=== PATIENT | male | born 1950 | race Caucasian/White ===

== ENCOUNTER 2021-03-13 14:52 | Emergency (ER) | payer MEDICARE ==
[~2021-03-13] VITALS: Ht 167.6 cm; Wt 104.3 kg
[2021-03-13] MEDS ORDERED: DOXYCYCLINE HY100 MG PO (16:25)
== END 2021-03-13 16:37 | disposition home or self-care (01) ==
LOC: ER 15:05
DX: R06.00 Dyspnea, unspecified (principal); M79.89 Other specified soft tissue disorders; I10 Essential (primary) hypertension; E11.9 Type 2 diabetes mellitus without complications; I50.9 Heart failure, unspecified; E78.5 Hyperlipidemia, unspecified; M54.9 Dorsalgia, unspecified; G89.29 Other chronic pain; R94.31 Abnormal electrocardiogram [ECG] [EKG]
CPT/HCPCS: 71045; 93005; 99283

== ENCOUNTER 2024-02-09 07:10 | Emergency (ER) | payer MEDICARE ==
[~2024-02-09] VITALS: Ht 167.6 cm; Wt 104.3 kg
[~2024-02-09 07:10] MED LIST: DOXYCYCLINE HY100 MG PO
[2024-02-09 07:15] VITALS: PULSE 76; RESP 22; TEMP 99.6; O2SAT 98
[2024-02-09 08:15] LABS: EOSINOPHILS # (AUTO) 0.2 (0.0-0.4); EOSINOPHILS % 6.1 % (0.0-6.0); HEMOGLOBIN 13.4 g/dL (14.0-18.0); LYMPHOCYTES # (AUTO) 0.9 (1.0-3.2); LYMPHOCYTES % 29.3 % (18.0-39.1); MEAN CORPUSCULAR HEMOGLOBIN 26.7 pg (28-32); MEAN CORPUSCULAR HGB CONC 31.9 g/dL (31-35); MEAN CORPUSCULAR VOLUME 83.7 fL (81-99); MONOCYTES # (AUTO) 0.7 (0.2-0.8); MONOCYTES % 21.3 % (4.4-11.3); NEUTROPHILS # (AUTO) 1.3 (2.1-6.9); PLATELET COUNT 228 x10e3/uL (140-360); RED BLOOD COUNT 5.02 x10e6/uL (4.3-5.7); RED CELL DISTRIBUTION WIDTH 13.9 % (11.7-14.4); WHITE BLOOD COUNT 3.14 x10e3/uL (4.8-10.8)
[2024-02-09 08:38] LABS: ALBUMIN 3.8 g/dL (3.5-5.0); ALBUMIN/GLOBULIN RATIO 0.8 (0.8-2.0); ANION GAP 13.3 mmol/L (8-16); BILIRUBIN,TOTAL 0.8 mg/dL (0.2-1.2); CALCIUM 10.3 mg/dL (8.4-10.2); CREATININE, SERUM 4.11 mg/dL (0.72-1.25); POTASSIUM 4.3 mmol/L (3.5-5.1); TOTAL PROTEIN 8.6 g/dL (6.5-8.1)
[2024-02-09 08:46] LABS: TROPONIN I 0.03 ng/mL (0-0.300)
[2024-02-09] MEDS ORDERED: ONDANSETRON ODT4 MG PO (08:55)
[2024-02-09] MEDS ORDERED: DICYCLOMINE HCL20 MG PO (08:55)
[2024-02-09] MEDS: DICYCLOMINE HCL 20 MG/2 ML VIAL IM ONE (09:12)
[2024-02-09] MEDS: ONDANSETRON HCL INJ 2MG/ML 2ML 2 MG/ML VIAL IV STA (09:12)
[2024-02-09 12:40] LABS: BAND NEUTROPHILS % (MANUAL) 3 %; BASOPHILS % (MANUAL) 1 % (0-1.5); EOSINOPHILS % (MANUAL) 6 % (0-7); LYMPHOCYTES % (MANUAL) 35 % (19-48); METAMYELOCYTES % (MANUAL) 1 % (0-0); MONOCYTES % (MANUAL) 16 % (3.4-9.0); NEUTROPHILS % (MANUAL) 38 % (40-74); PLATELET ESTIMATE ADEQUATE; PLATELET MORPHOLOGY COMMENT NORMAL; RBC MORPHOLOGY COMMENT NORMAL
== END 2024-02-09 10:18 | disposition home or self-care (01) ==
LOC: ER 07:18
DX: R10.11 Right upper quadrant pain (principal); R11.2 Nausea with vomiting, unspecified; I12.9 Hypertensive chronic kidney disease with stage 1 through stage 4 chronic kidney disease, or unspecified chronic kidney disease; E11.22 Type 2 diabetes mellitus with diabetic chronic kidney disease; E11.65 Type 2 diabetes mellitus with hyperglycemia; N18.9 Chronic kidney disease, unspecified; Z99.2 Dependence on renal dialysis; E78.5 Hyperlipidemia, unspecified; M54.9 Dorsalgia, unspecified; G89.29 Other chronic pain; R94.31 Abnormal electrocardiogram [ECG] [EKG]
CPT/HCPCS: 36415; 71045; 74176; 80053; 83690; 84484; 85025; 93005; 99283; J0500; J2405

== ENCOUNTER 2024-05-18 08:46 | Emergency (ER) | payer MEDICARE ==
[~2024-05-18] VITALS: Ht 167.6 cm; Wt 104.3 kg
[~2024-05-18 08:46] MED LIST changes: +AMLODIPINE BESYL5 MG PO; +ASPIRIN EC81 MG PO; +BENZONATATE100 MG PO; +CARVEDILOL12.5 MG PO; +DICYCLOMINE HCL20 MG PO; +DIOVAN80 MG PO; +FEBUXOSTAT40 MG PO; +FLOMAX0.4 MG PO; +FUROSEMIDE80 MG PO; +GABAPENTIN100 MG PO; +LEVOFLOXACIN250 MG PO; +ONDANSETRON ODT4 MG PO; +PRAVASTATIN SOD20 MG PO; +RAMELTEON8 MG PO; +TRADJENTA5 MG PO
[2024-05-18 08:50] VITALS: PULSE 79; RESP 18; TEMP 98.6
[2024-05-18 10:54] LABS: BILIRUBIN,URINE NEGATIVE (NEGATIVE); CLARITY,URINE CLEAR (CLEAR); COLOR,URINE YELLOW (YELLOW); GLUCOSE, URINE 1+ (NEGATIVE); KETONES,URINE NEGATIVE (NEGATIVE); LEUKOCYTE ESTERASE ,URINE NEGATIVE (NEGATIVE); NITRITE,URINE NEGATIVE (NEGATIVE); PH,URINE 7 (5 - 7); PROTEIN,URINE DIPSTICK 2+ (NEGATIVE); URINE UROBILINOGEN 0.2 mg/dL (0.2 - 1)
[2024-05-18] MEDS ORDERED: CEFDINIR300 MG PO (10:59)
[2024-05-18 11:10] LABS: EPITHELIAL CELLS,URINE FEW /LPF
[2024-05-18] MEDS: CEFDINIR 300 MG CAP PO STA (11:22)
[2024-05-18 12:12] VITALS: BP 146/84; PULSE 81; RESP 18; TEMP 98.3; O2SAT 99
== END 2024-05-18 11:40 | disposition home or self-care (01) ==
LOC: ER 08:55
DX: R33.9 Retention of urine, unspecified (principal); I12.9 Hypertensive chronic kidney disease with stage 1 through stage 4 chronic kidney disease, or unspecified chronic kidney disease; E11.22 Type 2 diabetes mellitus with diabetic chronic kidney disease; N18.9 Chronic kidney disease, unspecified; Z99.2 Dependence on renal dialysis; I50.9 Heart failure, unspecified; E78.5 Hyperlipidemia, unspecified; M54.9 Dorsalgia, unspecified; G89.29 Other chronic pain
CPT/HCPCS: 51700; 81001; 87086; 99283

== ENCOUNTER 2024-05-23 20:13 | Emergency (ER) | payer MEDICARE ==
[~2024-05-23] VITALS: Ht 167.6 cm; Wt 104.3 kg
[~2024-05-23 20:13] MED LIST changes: +CEFDINIR300 MG PO
[2024-05-23] MEDS: ACETAMINOPHEN 325 MG TAB PO ONE (21:42)
[2024-05-23 21:56] LABS: BASOPHILS % 0.6 % (0.0-1.0); EOSINOPHILS # (AUTO) 0.1 (0.0-0.4); EOSINOPHILS % 3.5 % (0.0-6.0); HEMATOCRIT 35.3 % (38.2-49.6); LYMPHOCYTES # (AUTO) 0.8 (1.0-3.2); LYMPHOCYTES % 23.7 % (18.0-39.1); MEAN CORPUSCULAR VOLUME 82.5 fL (81-99); MONOCYTES # (AUTO) 0.6 (0.2-0.8); MONOCYTES % 17.7 % (4.4-11.3); NEUTROPHILS # (AUTO) 1.7 (2.1-6.9); NEUTROPHILS % 54.2 % (38.7-80.0); PLATELET COUNT 216 x10e3/uL (140-360); RED BLOOD COUNT 4.28 x10e6/uL (4.3-5.7); WHITE BLOOD COUNT 3.16 x10e3/uL (4.8-10.8)
[2024-05-23 22:02] LABS: INR 1.01; PROTHROMBIN TIME 13.9 seconds (11.9-14.5)
[2024-05-23 22:03] LABS: PARTIAL THROMBOPLASTIN TIME 36.8 seconds (23.8-35.5)
[2024-05-23 22:13] LABS: ALBUMIN 3.4 g/dL (3.5-5.0); ALBUMIN/GLOBULIN RATIO 0.8 (0.8-2.0); ANION GAP 16.2 mmol/L (8-16); BILIRUBIN,TOTAL 0.7 mg/dL (0.2-1.2); CALCIUM 9.1 mg/dL (8.4-10.2); CREATININE, SERUM 3.07 mg/dL (0.72-1.25); POTASSIUM 4.2 mmol/L (3.5-5.1); TOTAL PROTEIN 7.7 g/dL (6.5-8.1)
[2024-05-23 22:45] LABS: CLARITY,URINE SL CLOUDY (CLEAR); COLOR,URINE YELLOW (YELLOW); LEUKOCYTE ESTERASE ,URINE NEGATIVE (NEGATIVE); NITRITE,URINE NEGATIVE (NEGATIVE); PH,URINE 8.5 (5 - 7); PROTEIN,URINE DIPSTICK >=300 (NEGATIVE)
[2024-05-23 22:46] LABS: BILIRUBIN,URINE NEGATIVE (NEGATIVE); GLUCOSE, URINE NEGATIVE (NEGATIVE); KETONES,URINE NEGATIVE (NEGATIVE); URINE UROBILINOGEN 0.2 mg/dL (0.2 - 1)
[2024-05-23 23:41] LABS: STREPTOCOCCUS GRP A ANTIGEN NEGATIVE (NEGATIVE)
[2024-05-23 23:42] LABS: CORONAVIRUS COVID-19 AG NEGATIVE (NEGATIVE); INFLUENZA A AG NEGATIVE (NEGATIVE); INFLUENZA B AG NEGATIVE (NEGATIVE)
[2024-05-23 23:44] LABS: BACTERIA,URINE MANY /HPF
[2024-05-23 23:45] LABS: EPITHELIAL CELLS,URINE FEW /LPF
[2024-05-24 00:11] VITALS: PULSE 78; RESP 18; TEMP 99.6; O2SAT 93
== END 2024-05-24 00:15 | disposition home or self-care (01) ==
LOC: ER 20:18
DX: N48.89 Other specified disorders of penis (principal); R46.0 Very low level of personal hygiene; Z46.6 Encounter for fitting and adjustment of urinary device; I12.9 Hypertensive chronic kidney disease with stage 1 through stage 4 chronic kidney disease, or unspecified chronic kidney disease; E11.22 Type 2 diabetes mellitus with diabetic chronic kidney disease; E11.65 Type 2 diabetes mellitus with hyperglycemia; N18.9 Chronic kidney disease, unspecified; Z99.2 Dependence on renal dialysis; I50.9 Heart failure, unspecified; E78.5 Hyperlipidemia, unspecified; M54.9 Dorsalgia, unspecified; G89.29 Other chronic pain; R94.31 Abnormal electrocardiogram [ECG] [EKG]
CPT/HCPCS: 36415; 71045; 80053; 81001; 83518; 83605; 85025; 85610; 85730; 87040; 87070; 87086; 87186; 87428; 93005; 99284; J0696